=== PATIENT | male | born 1965 | race Caucasian/White ===

== ENCOUNTER 2018-11-19 00:17 | Emergency (ER) | payer BC ==
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
--- NOTE | 2018-11-19 01:40 | RADIOLOGY REPORT (SQ) ---
US SCROTUM EXAM DATE: 11/19/2018 12:00 AM CDT HISTORY: Scrotal pain. COMPARISON: None. TECHNIQUE: Quezada-scale, color Doppler, and spectral Doppler ultrasound images of the scrotum were obtained. FINDINGS: RIGHT: Normal size and echogenicity of the testis, measuring 4.1 x 3.1 x 2.0 cm. Positive color Doppler flow is present. No focal intratesticular mass is seen. The epididymis also has normal size and echogenicity. LEFT: Normal size and echogenicity of the testis, measuring 5.2 x 3.0 x 2.1 cm. Positive color Doppler flow is present. No focal intratesticular mass is seen. The epididymis also has normal size and echogenicity. There is a 5 mm cyst in the epididymal head. OTHER: Small bilateral hydroceles, greater on the right. No varicoceles. No scrotal hernias. IMPRESSION: No evidence of testicular torsion or inflammation.
[2018-11-19 02:04] LABS: APPEARANCE,URINE SLIGHTLY-CLOUDY; BILIRUBIN,URINE NEGATIVE (NEGATIVE); COLOR,URINE YELLOW; GLUCOSE, URINE NEGATIVE (NEGATIVE); KETONES,URINE NEGATIVE (NEGATIVE); LEUKOCYTE ESTERASE,URINE NEGATIVE (NEGATIVE); NITRITE,URINE NEGATIVE (NEGATIVE); PROTEIN,URINE NEGATIVE (NEGATIVE); URINE SPECIFIC GRAVITY 1.016; UROBILINOGEN,URINE NEGATIVE mg/dL (<2.0)
[2018-11-19] MEDS ORDERED: FENTANYL CITRATE INJ/PF 100 MCG/2 ML AMPUL IV ONE (04:52)
[2018-11-19] MEDS ORDERED: ONDANSETRON HCL INJ/PF 4 MG/2 ML SDV IV ONE (04:52)
[2018-11-19 05:30] LABS: ABSOLUTE BASOPHILS # (AUTO) 0.1 10^3/uL (0.0-0.2); ABSOLUTE EOSINOPHILS # (AUTO) 0.2 10^3/uL (0.0-0.6); ABSOLUTE LYMPHOCYTES (AUTO) 2.2 10^3/uL (0.5-4.7); ABSOLUTE MONOCYTES (AUTO) 0.7 10^3/uL (0.1-1.4); ABSOLUTE NEUT (AUTO) 7.1 10^3/uL (1.7-8.2); BASOPHILS % (AUTO) 0.7 % (0-2); EOSINOPHILS % (AUTO) 1.5 % (0-6); HEMATOCRIT 37.2 % (37.9-51.0); HEMOGLOBIN 12.7 g/dL (13.5-17.0); LYMPHOCYTES % (AUTO) 21.3 % (13-45); MEAN CORPUSCULAR HEMOGLOBIN 29.1 pg (27.0-33.4); MEAN CORPUSCULAR HGB CONC 34.1 g/dL (32.0-36.0); MEAN CORPUSCULAR VOLUME 85 fl (80-97); MONOCYTES % (AUTO) 6.7 % (3-13); PLATELET COUNT 234 10^3/uL (150-450); RED BLOOD COUNT 4.36 10^6/uL (4.35-5.55); RED CELL DISTRIBUTION WIDTH 14.2 % (11.5-14.0); SEGMENTED NEUTROPHILS % (AUTO) 69.8 % (42-78); TOTAL CELLS COUNTED % (AUTO) 100 %; WHITE BLOOD COUNT 10.2 10^3/uL (4.0-10.5)
[2018-11-19] MEDS ORDERED: NORMAL SALINE 1000 ML 1,000 ML IV ONE ×2 (05:33→06:06)
[2018-11-19 06:02] LABS: ALBUMIN 4.8 g/dL (3.5-5.0); ALKALINE PHOSPHATASE 79 U/L (38-126); ANION GAP 10 (5-19); ASPARTATE AMINO TRANSFERASE 64 U/L (17-59); BILIRUBIN,DIRECT 0.4 mg/dL (0.0-0.4); BILIRUBIN,TOTAL 0.6 mg/dL (0.2-1.3); BLOOD UREA NITROGEN 23 mg/dL (7-20); CARBON DIOXIDE 25 mmol/L (22-30); CHLORIDE 106 mmol/L (98-107); GLUCOSE 106 mg/dL (75-110); POTASSIUM 4.6 mmol/L (3.6-5.0); TOTAL PROTEIN 8.5 g/dL (6.3-8.2)
--- NOTE | 2018-11-19 06:15 | RADIOLOGY REPORT (SQ) ---
CLINICAL HISTORY: right testicular pelvic pain/dysuria/possible stone COMPARISON: None. TECHNIQUE: CT ABDOMEN PELVIS WITHOUT IV CONTRAST on 11/19/2018 4:51 AM CDT This exam was performed according to our departmental dose-optimization program, which includes automated exposure control, adjustment of the mA and/or kV according to patient size and/or use of iterative reconstruction technique. FINDINGS: Lower lungs are clear. Abdomen: Liver is fatty in attenuation. There is no biliary dilatation. Gallbladder is normal in appearance. The pancreas and spleen are normal in appearance. Adrenal glands are normal. Fairly seven left renal calculi measuring up to 3 mm. There is a small hyperdense cyst in the midpole of the left kidney. At least nine punctate right renal calculi. There is mild right hydronephrosis. Abdominal aorta is normal in course and caliber without aneurysm. There is no free air. There is no retroperitoneal adenopathy. Pelvis: There is no bowel obstruction. There is a 2 mm calculus in the right side of urinary bladder Near the UVJ appendix is normal. There is no free fluid. Skeleton: There are no acute osseous findings. No suspicious bony lesions. IMPRESSION: Bilateral nephrolithiasis with a mildly obstructing right UVJ calculus versus a very recently passed calculus into the urinary bladder.
[2018-11-19 06:30] VITALS: BP 141/78
[2018-11-19] MEDS ORDERED: HYDROMORPHONE HCL INJ/PF 2 MG/ML AMPULE IV ONE (06:58)
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
[2018-11-19 08:00] LABS: CHLAM PCR NOT DETECTED (NOT DETECT)
== END 2018-11-19 07:34 | disposition home or self-care (01) ==
LOC: ER 00:17
DX: N20.0 Calculus of kidney (principal); R30.0 Dysuria; N50.811 Right testicular pain; E78.00 Pure hypercholesterolemia, unspecified; I10 Essential (primary) hypertension; Z87.442 Personal history of urinary calculi
CPT/HCPCS: 99284; 96361; 96374; 96375; 36415; 87086; 85025; 80053; 81001; 87491; 87591; 76870; 93976; 74176; J3010; J1170; J2405; J7030